=== PATIENT | male | born 1975 | race Caucasian/White ===

== ENCOUNTER 2022-11-06 16:24 | Day surgery (SDC) | payer BC, SELFPAY ==
[2022-11-06] VITALS (16 sets, daily range): BP systolic 102–134; BP diastolic 59–104; PULSE 74–100; RESP 16–20; TEMP 36.4–37; O2SAT 94–100; BMI 22.5
--- NOTE | 2022-11-06 16:52 | CRLHL7_ITS ---
For Patients: As a result of the Century Cures Act, medical imaging exams and procedure reports are released immediately into your electronic medical record. You may view this report before your referring provider. If you have questions, please contact your health care provider. INDICATION: Epigastric pain, right lower quadrant pain TECHNIQUE: CT abdomen and pelvis acquired with IV contrast. 85 cc of Isovue 370 contrast was administered intravenously. COMPARISON: None. FINDINGS: The visualized portions of the lung bases are clear. The liver, spleen, pancreas and adrenal glands are unremarkable. The gallbladder is nondistended. The kidneys enhance symmetrically without hydronephrosis. The bladder is partially distended and unremarkable. There are no dilated loops of small bowel to suggest obstruction.The appendix is mildly dilated with enhancement of the wall. There is mild adjacent fat stranding. No free air fluid. Bones are unremarkable. IMPRESSION: Acute appendicitis. No drainable fluid collection. No intraperitoneal free air. Dictated by Danitza Ayon MD @ 11/06/2022 5:43:23 PM Please note that all CT scans at this facility use dose modulation, iterative reconstruction, and/or weight-based dosing when appropriate to reduce radiation dose to as low as reasonably achievable. Dictated by: Danitza Ayon MD @ 11/06/2022 17:43:30 (Electronically Signed)
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
[2022-11-06 17:09] LABS: Basophils Percent Auto 0.2 % (0.0-3.0); Eosinophils Percent Auto 0.2 % (0.0-7.0); Hematocrit 45.6 % (37.0-53.0); Hemoglobin* 15.5 gm/dL (13.5-17.5); Immature Granulocytes Pct Auto 0.2 %; Lymphocytes Percent Auto 14.1 % (20-44); Mean Corpuscular HGB Conc 34 gm/dL (32-36); Mean Corpuscular Hemoglobin 31 pg (26-34); Mean Corpuscular Volume 91 fL (80-100); Monocytes Percent Auto 8.7 % (0.0-11.0); Neutrophils Percent Auto 76.6 % (42.0-72.0); Platelet Count* 303 K/uL (140-440); RDW Coefficient of Variation % 13.2 % (11.5-15.5); Red Blood Count 5.03 m/uL (4.30-5.90); White Blood Count* 12.93 K/uL (4.50-11.00)
[2022-11-06 17:14] LABS: Slide Review Reflex No
[2022-11-06] MEDS: ONDANSETRON 2 MG/ML inj 4 MG IVP (17:14)
[2022-11-06] MEDS: 0.9 % SODIUM CHLORIDE 1000 ml 1,000 ML IV (17:14)
[2022-11-06] MEDS: HYDROmorphone 0.5 mg/0.5 ml inj IVP ×2 (17:15→17:58)
[2022-11-06 17:25] LABS: Albumin* 4.2 g/dL (3.3-5.0); Chloride* 100 mmol/L (96-114)
[2022-11-06 17:26] LABS: Potassium* 3.9 mmol/L (3.6-5.1); Sodium* 136 mmol/L (135-149)
[2022-11-06 17:28] LABS: Alkaline Phosphatase* 131 U/L (40-150); Aspartate Amino Transferase* 22 U/L (12-35); Bilirubin Total* 0.7 mg/dL (0.1-1.5); Blood Urea Nitrogen* 14 mg/dL (5-24); Carbon Dioxide* 26 mmol/L (20-32); Creatinine* 0.8 mg/dL (0.5-1.5); Est. Creatinine Clearance* 129.54; Estimated Glomerular Filt Rate 111 ml/min; Lipase* 87 U/L (23-300); Total Protein* 7.1 g/dL (6.0-8.3)
[2022-11-06 17:29] LABS: Alanine Aminotransferase* 20 U/L (4-50); Calcium* 8.8 mg/dL (8.4-10.6); Glucose* 98 mg/dL (60-115)
[2022-11-06 17:31] LABS: C Reactive Protein* 5.3 mg/dL (0.5-1.0)
--- OUTSIDE RECORDS SUMMARY | 2022-11-06 17:51 | XMS_ITS | Continuity of Care Document ---
Author Name Unknown Organization [facility] Address [address] [place] [address] Phone Care Team Providers Care Fireman Name Role Phone Matthew Ko Unavailable Unavailable Allergies, Adverse Reactions, Alerts Substance Reaction Status Criticality No Known Allergies Active No Inform ation Medications Medication Instructions Dosage Effective Dates (start - stop) Status Comments [place] 5 mg-325 mg tablet take 1 by Oral route every 6-8 hours as needed for pain - Active gabapentin 300 mg capsule Take one tablet by oral route TID - Active HYDROCODONE -ACETAMINOPHEN (unknown strength) Not Available - Active GABAPENTIN (unknown strength) Not Available - Active Procedures Procedure Date Office/Outpatient Visit,Est, Mod 2014 Office/Outpatient Visit,Est, Mod 2013 Office/Outpatient Visit,New, Mod 2013 Advance Directives Directive Yes / No Effective Date File Name No Information Encounters Encounter Description Practice Location Reason(s) For Visit Diagnoses Date Provider Providers Copied on Encounter [facility], [address], [place], [place], [id number], [place] tel:[phone] [facility] No Information 6 Luke Castro. [facility] [place], [address], [place], [place], [id number] , [place]. tel:[phone] Office/Outpa tient Visit,Est, Mod [facility], [address], [place], [place], [id number], [place] tel:[phone] [facility] [place] Lumbar radiculopathy 5 Luke Weiss [facility], [address], [place], [place], [id number] , [place]. tel:[phone] [facility] [address] [place], [address]. tel:[phone] Office/Outpa tient Visit,Est, Mod [facility], [address], [place], [place], [id number], [place] tel:[phone] [facility] Back Pain (chief complaint) Obesity 4 Luke Matthew. [facility], [address], [place], [place], [id number] , [place]. tel:[phone] Referring Provider: Lashae Acevedo [facility] [address] [place], [address]. tel:[phone] Office/Outpa tient Visit,New, Mod Z [facility], [address], [place], [address], [place] tel:[phone] [facility] No Information 4 Luke Mcgeen. [facility], [address], [place], [place], [id number] , [place]. tel:[phone] Referring Provider: Lashae Acevedo [facility] [address] [place], [address]. tel:[phone] Family History Family Member Type Diagnosis Age At Onset No Information Payers Payer name Insurance type Covered constitution party ID Jess terry(s) [facility] [id number] [facility] [id number] Social History Type Description Quantity Date Captured Comments Sex Male Smoking Status No Information Chief Complaint And Reason For Visit No Information Reason For Referral Reason For Referral No Information Plan Of Treatment Date Type Action Status No Information History Of Present Illness Encounter Date Complaint History Of Prese nt Illness Back Pain Functional Status Date Functional Assessmen t No Information Instructions Date Instruction Additional Infor mation Weight Management Related to Obe sity, unspecified Assessments Type Assessment Date No Information Patient Care Teams Name Effective Dates (start - stop) Status Members No Information
[2022-11-06] MEDS: LACTATED RINGERS 1000 ML 1,000 ML 200 ML IV (18:01)
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
[2022-11-06] MEDS: PIPERACILLIN/TAZOBACTAM 3.375 GM INJ IVPB (19:35)
[2022-11-06] MEDS: BUPIVACAINE 0.25% 30 ML 20 ML INJECTION (19:44)
[2022-11-06] MEDS: MEPERIDINE 25 MG/ML INJ 12.5 MG IVP (20:28)
--- NOTE | 2022-11-06 20:29 | P.ANES_ITS ---
Anesthesia Charges Start Date/Time Anesthesia Start Date: 11/06/22 Anesthesia Start Time: 19:25 Stop Date/Time Anesthesia Stop Date: 11/06/22 Anesthesia Stop Time: 20:35 Summary Emergency: [employer]
--- NOTE | 2022-11-06 20:34 | P.GSOP_ITS ---
Operative Note Date of procedure: 11/06/22 Pre-op diagnosis: Acute appendicitis Post-op diagnosis: Same Type of Procedure: Laparoscopic appendectomy Indications: Patient is a 47-year-old male, who presented to the emergency department with clinical workup and symptoms consistent with acute appendicitis. Risks and benefits of operative intervention were discussed at length with the patient. Risks included but was not limited to: Bleeding, infection, risk of damage to surrounding structures, possible need for additional procedures, possible need to convert to an open operation and postoperative complications such as pneumonia, pulmonary emboli or OH. All questions and concerns were addressed with the patient agreeing to proceed. Procedure Description: After discussing the risks and benefits of the procedure, the patient signed informed consent.? The operative site was marked and the patient was brought to the operating room and placed on the operating table in supine position.? Care was taken to pad the patient's pressure points.?? The patient was then intubated by anesthesia.?? The operative site was then prepped and draped in the usual sterile fashion.? A time-out was then performed. Entrance to the abdomen was obtained via a 5 mm optical trocar in the left upper quadrant. The abdomen was insufflated and briefly surveyed for any signs of injury. There were none. There was evidence of upper midline adhesions of omentum. The lower pelvis was free of adhesions. A 12 mm port was placed l ateral to the umbilicus as well as a 5 mm port in the left lower quadrant under direct vision. The patient was then placed in Trendelenburg position with the right side up. The small bowel was gently moved out of the way and the appendix was in view. A small amount of dissection was necessary to free the appendix from the surrounding pelvic attachments. This was grasped and pulled into view. A mesenteric window was created between the base of the appendix and the mesoappendix. A 45 mm Endo-LENIN purple load stapler was then used to transect the appendix at its base. Two vascular loads were then used to take the mesoappendix. The staple lines were inspected for bleeding. There was a small area of pinpoint bleeding on the mesenteric staple line. This was controlled with cautery.. The appendix was then removed from the abdomen using an Endo- Catch bag. The specimen was sent to pathology. The abdomen was then briefly surveyed. Again the midline omental adhesions were noted. An incidental finding of discoloration to the liver, which appeared uniformly black was noted. The liver texture was normal in appearance, no evidence of nodularity, no concern for invasive disease. The 12 mm port site fascia was closed with 0 Vicryl via the Price-Brenda. All other ports removed under direct visualization. The skin was then closed with absorbable subcuticular suture. Sterile dressings were then applied. Instrument sponge and needle counts were correct at the end of the case. The patient was then woken and transported to the PACU in stable condition. Findings: Acute appendicitis, non perforated. Incidental finding of discoloration to the liver, completely black in appearance. Does appear to be of benign pathology on external examination. No biopsy performed. Anesthesia: GETA Surgeon: Charmaine Oliveira MD Estimated blood loss (mL): 10 Specimen: Appendix Condition: stable Disposition: PACU
[2022-11-06] MEDS: ACETAMINOPHEN INJ 1,000 MG/100 ML VIAL 400 MG IVPB (20:35)
--- NOTE | 2022-11-06 22:49 | PC.NURSE ---
Shift [id number]- Patient arrives from PACU at approximately 2115. Lap sites open-to-air without drainage- glued. Ice applied to abdomen. He rates pain 4/10, sore. He is eating and drinking without issue. Has not yet arisen from bed.
[2022-11-06] MEDS: IBUPROFEN 600 MG TABLET PO (23:01)
[2022-11-06] MEDS: OXYCODONE 5 MG TABLET PO (23:02)
--- NOTE | 2022-11-07 03:15 | PC.NURSE ---
Discharge note: Pt complained of abdominal pain at the start of the shift after oxycodone 5mg was given 15minites before. Pt was advised to do some walk. Pt walked for about 15minutes and confirmed pain has reduced. Pt was able to urinate 2x. Pt asked to go home at 0010. Discharge instruction given. V/S were stable and recorded as T 97.6, P 84, R 18, O2 96, and Bp 104/65. IV line removed and finally left the unit with at 0045.
--- NOTE | 2022-11-09 13:15 | PC.NURSE ---
LATE ENTRY ORDER- SAME DAY SURGERY STATUS 11/06/22 AT 2100
== END 2022-11-07 00:06 | disposition home or self-care (01) ==
LOC: ED 18:53 → SS 19:28 → MEDSURG 21:41
PROVIDERS: Emergency Provider Family Medicine; PCP Family Medicine; Visit Provider Surgery
PROC: 0DTJ4ZZ Resection of Appendix, Percutaneous Endoscopic Approach (ICD-10-PCS; CPT 44970; principal; 2022-11-06 19:45)
DX: K35.80 Unspecified acute appendicitis (principal); F17.210 Nicotine dependence, cigarettes, uncomplicated
CPT/HCPCS: 44970; 36415; 74177; 80053; 81003; 83690; 840; 85025; 86140; 88304; 99140; 99284; 99285; A9270; J0131; J0330; J0665; J1100; J1170; J2175; J2250; J2405; J2543; J2704; J3010; J3490; J7030; J7120; Q9967